=== PATIENT | female | born 1985 | race Caucasian/White ===

== ENCOUNTER 2024-05-21 02:01 | Emergency (ER) | payer OTHER ==
[~2024-05-21] VITALS: Ht 162.6 cm; Wt 86.2 kg
== END 2024-05-21 05:50 | disposition home or self-care (01) ==
LOC: ER 02:01
DX: S06.9X9A Unspecified intracranial injury with loss of consciousness of unspecified duration, initial encounter (principal); Y04.8XXA Assault by other bodily force, initial encounter; Z88.6 Allergy status to analgesic agent; Z88.0 Allergy status to penicillin
CPT/HCPCS: 70450; 99284-25